=== PATIENT | male | born 1960 | race Caucasian/White ===

== ENCOUNTER 2018-09-29 09:35 | Outpatient (CLI) | payer OTHER ==
--- NOTE | 2018-09-29 10:58 | RAD ---
THREE VIEWS RIGHT WRIST: Comparison: None. History: Right wrist pain. FINDINGS: Three views of the right wrist shows no evidence of acute fracture or dislocation. No degenerative ch anges are seen. No soft tissue swelling is present. IMPRESSION: No evidence of acute osseous abnormality. POS: [facility]
== END 2018-09-29 09:36 | disposition home or self-care (01) ==
LOC: RAD-FRANK 09:35
PROVIDERS: ATTEND Nurse Practitioner Family
DX: M25.531 Pain in right wrist (principal)

== ENCOUNTER 2018-10-07 15:08 | Outpatient (CLI) | payer OTHER ==
--- NOTE | 2018-10-07 16:15 | RAD ---
ABDOMEN ONE VIEW: History: Abdominal pain, vomiting. FINDINGS: Minimal scattered gas and fecal material in the colon. No large or small bowel obstruction. No overt calculus. Calcified phlebolith in the right pelvis. IMPRESSION: Unremarkable abdomen. No bowel obstruction. POS: [facility]
== END 2018-10-07 15:09 | disposition home or self-care (01) ==
LOC: RAD-FRANK 15:08
PROVIDERS: ATTEND Nurse Practitioner Family
DX: R11.10 Vomiting, unspecified (principal)
CPT/HCPCS: 74018